=== PATIENT | male | born 1950 | race Caucasian/White ===

== ENCOUNTER 2018-02-05 12:23 | Inpatient (IN) | payer MEDICARE, OTHER ==
[~2018-02-05] VITALS: Ht 182.9 cm; Wt 101.6 kg
[2018-02-05] MEDS ORDERED: TIOT18CA3 IH (12:40)
[2018-02-05] MEDS ORDERED: DILT-32 PO (12:40)
[2018-02-05] MEDS ORDERED: ALBU2.5V38 IH (12:40)
--- NOTE | 2018-02-05 12:58 | NUR ---
Lunch provided, pt ate w/ good appetite. Denies pin.
--- NOTE | 2018-02-05 13:01 | NUR ---
Dr Moran medically cleared pt.
[2018-02-05 13:44] VITALS: BP 117/64
--- NOTE | 2018-02-05 13:45 | NUR ---
RECEIVED PATIENT FROM ER WAS PLACE ON 5150 FOR GD DUE TO N-MISSING PERSON FOR 4 DAYS. PATIENT IS ALERT AND ORIENTED X3,DENIES ANY SUICIDAL IDEATION.ABLE TO AMBULATING WITH UNSTEADY GAIT,ENCOURAGE TO USE FWW,DENIES ANY PAIN OR DISCOMFORT AT THIS TIME,WILL CONTINUE TO CLOSE MONITORING.
[2018-02-05] MEDS ORDERED: ACETAMINOPHEN 325 MG TABLET PO PRN (16:15)
[2018-02-05] MEDS ORDERED: MAG HYDROX/AL HYDROX/SIMETH 30 ML LIQUID UDC PO PRN (16:15)
[2018-02-05] MEDS ORDERED: MAGNESIUM HYDROXIDE 30 ML LIQUID UDC PO PRN (16:15)
[2018-02-05] MEDS: OLANZAPINE ZYDIS 5 MG TAB.RAPDIS PO SCH (16:16)
[2018-02-05 21:45] VITALS: BP 132/67
[2018-02-06 07:30] VITALS: BP 149/79
[2018-02-06] MEDS: OLANZAPINE ZYDIS 5 MG TAB.RAPDIS PO SCH (08:45)
--- NOTE | 2018-02-06 15:45 | NUR ---
Gps/Learning And Development Consultant- Patient requesting to have nicotine patch, claimed he'd been smoking for many years, 1-2 packs of cigarette/day. Old nicotine patch noted to his right deltoid area, Nicotine patch 21 mg. applied to his left deltoid area as ordered.
[2018-02-06] MEDS: NICOTINE 21 MG/24HR PATCH TD SCH (15:46)
[2018-02-06 16:10] VITALS: BP 118/69
[2018-02-06 22:03] VITALS: BP 129/73
[2018-02-06] MEDS ORDERED: ALBUTEROL SULFATE 2.5 MG/3 ML NEBU IH PRN (22:15)
[2018-02-07] MEDS: ZOLPIDEM 5 MG TABLET PO PRN ×2 (01:01→23:29)
[2018-02-07] MEDS: CLONAZEPAM 0.5 MG TABLET PO PRN (02:31)
[2018-02-07 07:30] VITALS: BP 119/73
[2018-02-07] MEDS: NICOTINE 21 MG/24HR PATCH TD SCH (09:00)
[2018-02-07] MEDS: DILTIAZEM HCL CD 120 MG CAP.SR.24H PO SCH (09:01)
[2018-02-07] MEDS: OLANZAPINE ZYDIS 5 MG TAB.RAPDIS PO SCH (09:02)
--- NOTE | 2018-02-07 14:05 | NUR ---
Initial Discharge Plan: Patient lives with his , Tory [[phone]], 13 miles outside of [place] in a home [[address] [place] [address]]. front desk worker was unable to assess where patient would like to go after hospital stay. However, patient's welcomes patient home when ready for discharge. front desk worker spoke with patient about SNF placement if appropriate and she agreed it would be good for further stabilization if needed. Patient is not medication compliant at home and may need assistance with this if discharged home. Discharge plan is uncertain at this time but will either be home with home health or SNF placement if appropriate. Patient's has agreed to provide transportation if needed. front desk worker will continue to collaborate with rocky, MD, and patient's on a safe and proper discharge when ready.
[2018-02-07 15:58] VITALS: BP 116/69
--- NOTE | 2018-02-07 18:05 | NUR ---
Gps/Haris Gutierrez PRINT SHOP HELPER was informed patient sensitive to Nicotine patch, redness to dentoid area noted. Patient denies itching no pain
[2018-02-07 20:24] VITALS: BP 123/76
--- NOTE | 2018-02-08 06:03 | NUR ---
GPS: REMAIN AWAKE. AMBIEN 5 MG PO GIVEN NOT EFFECTIVE. NO SLEEP THROUGH THE NIGHT. NO AGITATION NOTED. CALM AND COOPERATIVE WITH CARE AND MEDICATION CONTINUE MONITORING FOR SAFETY.
[2018-02-08 07:30] VITALS: BP 106/57
[2018-02-08] MEDS: DILTIAZEM HCL CD 120 MG CAP.SR.24H PO SCH (09:00)
[2018-02-08] MEDS: OLANZAPINE ZYDIS 5 MG TAB.RAPDIS PO SCH (09:00)
[2018-02-08] MEDS: NICOTINE 21 MG/24HR PATCH TD SCH (10:26)
[2018-02-08 15:45] VITALS: BP 128/73
[2018-02-08] MEDS: ZOLPIDEM 5 MG TABLET PO PRN (21:24)
[2018-02-08 21:42] VITALS: BP 127/77
--- NOTE | 2018-02-09 06:33 | NUR ---
PT SHOWS NO SIGNS OF DISTRESS. PRESCRIBED MEDICATION GIVEN AND PT TOLERATED IT WELL. GIVEN AMBIEN TO PT FOR SLEEP. PT SLEPT 4 HOURS. SHOWERED TODAY. SAFETY AND COMFORT PROVIDED. ALL NEEDS ARE MET. WILL ENDORSE TO INCOMING NURSE FOR CONTINUITY OF CARE.
[2018-02-09] MEDS: DILTIAZEM HCL CD 120 MG CAP.SR.24H PO SCH (08:19)
[2018-02-09] MEDS: CLONAZEPAM 0.5 MG TABLET PO PRN ×2 (08:19→16:51)
[2018-02-09] MEDS: OLANZAPINE ZYDIS 5 MG TAB.RAPDIS PO SCH ×2 (08:19→20:43)
[2018-02-09] MEDS: NICOTINE 21 MG/24HR PATCH TD SCH (08:19)
[2018-02-09 09:51] VITALS: BP 133/76
[2018-02-09 16:00] VITALS: BP 116/70
--- NOTE | 2018-02-09 17:30 | NUR ---
PATIENT WAS VERY FORGETFUL /DEMENTIA BUT ABLE TO FOLLOW SIMPLE DIRECTION WELL MEDICATION PRN FOR ANXIETY GIVEN ORDERED ,NO ACUTE DISTRESS ,SAFETY MEASURE PROVIDED CALL LIGHT IN REACH
[2018-02-09 20:52] VITALS: BP 116/70
--- NOTE | 2018-02-09 23:09 | NUR ---
RECEIVED RESIDENT IN BED AND UPON APPROACH ENGAGED IN A BRIEF CONVERSATION WITH STAFF. HE PROCEED TO TELL US HE KNEW HIS RIGHTS SO WILL NOT TAKE HIS MEDS.BENEFITS AND RISK EXPLAINED BUT HE STILL REFUSED.HE IS ISOLATIVE WITHDRAWN AND MILDLY SUSPICIOUS.HOWEVER DENIES SI/HI AND IS FORGETFUL. WILL CONTINUE TO MONITOR.
--- NOTE | 2018-02-10 07:03 | NUR ---
SLEPT APPROX.8HRS. REFUSED MEDS BOT MADE NO COMPLIANT.
[2018-02-10 07:30] VITALS: BP 114/61
--- NOTE | 2018-02-10 07:30 | NUR ---
patient received in room awake aaox3. stable condition. no SI noted at this time. no complaints of pain/discomfort. safety precs observed at all times. comfort measures provided. will continue to monitor closely.
[2018-02-10] MEDS: NICOTINE 21 MG/24HR PATCH TD SCH (08:38)
[2018-02-10] MEDS: DILTIAZEM HCL CD 120 MG CAP.SR.24H PO SCH (08:39)
[2018-02-10] MEDS: OLANZAPINE ZYDIS 5 MG TAB.RAPDIS PO SCH ×2 (08:43→20:48)
--- NOTE | 2018-02-10 14:41 | NUR ---
Firearms Report: nursery worker submitted a [employer] firearms report on patient who is on a 5250 gravely disabled certification.
[2018-02-10 16:48] VITALS: BP 125/70
--- NOTE | 2018-02-10 18:50 | NUR ---
PATIENT'S CONDITION REMAINS THE SAME. REFUSED PSYCH MEDS THIS AM. SEEN TALKING TO HIMSELF, HALLUCINATIONS NOTED. DENIES SI. SEEN AND EXAMINED BY DR DELEON. ALL NEEDS ATTENDED AND ANTICIPATED.
[2018-02-10 20:00] VITALS: BP 121/71
[2018-02-11 07:30] VITALS: BP 155/86
[2018-02-11] MEDS: OLANZAPINE ZYDIS 5 MG TAB.RAPDIS PO SCH ×3 (08:40→21:00)
[2018-02-11] MEDS: NICOTINE 21 MG/24HR PATCH TD SCH (08:40)
[2018-02-11] MEDS: DILTIAZEM HCL CD 120 MG CAP.SR.24H PO SCH (08:40)
[2018-02-11 19:08] VITALS: BP 144/85
[2018-02-11 20:40] VITALS: BP 129/78
[2018-02-12 07:30] VITALS: BP 125/76
[2018-02-12 07:30] LABS: BASOPHILS # (AUTO) 0.1 K/uL (0.0-8.0); BASOPHILS % (AUTO) 0.9 % (0.0-2.0); EOSINOPHILS # (AUTO) 0.4 K/uL (0.0-0.7); EOSINOPHILS % (AUTO) 4.7 % (0.0-7.0); HEMOGLOBIN 14.1 g/dL (12.5-16.3); LYMPHOCYTES # (AUTO) 2.1 K/uL (20.0-40.0); LYMPHOCYTES % (AUTO) 27.6 % (20.5-51.5); MEAN CORPUSCULAR HEMOGLOBIN 33.4 uug (23.8-33.4); MEAN CORPUSCULAR HGB CONC 35 g/dL (32.5-36.3); MEAN CORPUSCULAR VOLUME 94.6 fL (73.0-96.2); MONOCYTES # (AUTO) 0.7 K/uL (2.0-10.0); MONOCYTES % (AUTO) 8.9 % (0.0-11.0); NEUTROPHILS # (AUTO) 4.5 K/uL (1.8-8.9); NEUTROPHILS % (AUTO) 57.9 % (38.5-71.5); PLATELET COUNT (AUTO) 269 K/uL (152-348); RED BLOOD CELL COUNT(AUTO) 4.22 MIL/uL (4.06-5.63); WHITE BLOOD COUNT (AUTO) 7.7 K/uL (3.6-10.2)
[2018-02-12 07:43] LABS: BILIRUBIN,TOTAL 0.7 mg/dL (0.2-1.0); CREATININE 0.8 mg/dL (0.6-1.3); PHOSPHOROUS 3.5 mg/dL (2.5-4.9); POTASSIUM 3.9 mmol/L (3.5-5.1); TOTAL PROTEIN, SERUM 6.7 g/dL (6.4-8.2)
[2018-02-12] MEDS: DILTIAZEM HCL CD 120 MG CAP.SR.24H PO SCH (09:00)
[2018-02-12] MEDS: OLANZAPINE ZYDIS 5 MG TAB.RAPDIS PO SCH ×2 (09:00→20:55)
[2018-02-12] MEDS: NICOTINE 14 MG/24HR PATCH TD SCH (10:11)
--- NOTE | 2018-02-12 12:00 | NUR ---
PT HAS RED IRRITATED AREAS ON SKIN FROM WHERE HE REMOVES DAILY NICOTINE PATCH (ON RIGHT SHOULDERBLADE, LEFT SHOULDERBLADE, 2 AREAS ON LEFT DELTOID, 1 AREA ON RIGHT DELTOID, 2 AREAS ON STOMACH). CONSULTED WITH DAVIAN COWAN, PATCH WAS SWITCHED FROM 21MG TO 14MG TO SEE IF IT WAS TOO STRONG AND CAUSING IRRITATION (VS AN ALLERGY). PICTURED IN CHART.
[2018-02-12 15:00] VITALS: BP 110/71
[2018-02-12] MEDS: HYDROCORTISONE 1% CREAM 30 GM TUBE TP PRN ×2 (15:22→20:56)
[2018-02-12 20:23] VITALS: BP 136/70
--- NOTE | 2018-02-13 05:50 | NUR ---
No changes t/o shift. Patient slept appox. 10 hours. Patient remains calm and cooperative. However patient continues to refuse pysch medications. Patient only allowed to have the hydrocortisone cream applied to red, irritated spots his abdomen, back and bilateral arms from the Nicotine patch. Ambulates with steady gait. Good urine output. Safety and and comfort measures maintained t/o shift. All meds given as ordered. All needs met.
[2018-02-13 07:30] VITALS: BP 141/72
[2018-02-13] MEDS: OLANZAPINE ZYDIS 5 MG TAB.RAPDIS PO SCH ×2 (09:00→20:00)
[2018-02-13] MEDS: DILTIAZEM HCL CD 120 MG CAP.SR.24H PO SCH (09:53)
[2018-02-13] MEDS: NICOTINE 14 MG/24HR PATCH TD SCH (09:53)
[2018-02-13 15:48] VITALS: BP 120/71
[2018-02-13 20:33] VITALS: BP 116/63
[2018-02-14] MEDS: HYDROCORTISONE 1% CREAM 30 GM TUBE TP PRN (02:43)
--- NOTE | 2018-02-14 06:39 | NUR ---
GPS: Remain awake most of the night. offered sleeping medication ,patient refused ambien for sleep. refused hs po medications. uncooperative with care at time.slept 1 hrs only through the night. continue monitoring for safety.
[2018-02-14 07:30] VITALS: BP 104/47
[2018-02-14] MEDS: DILTIAZEM HCL CD 120 MG CAP.SR.24H PO SCH (09:00)
[2018-02-14] MEDS: OLANZAPINE ZYDIS 5 MG TAB.RAPDIS PO SCH (09:00)
[2018-02-14] MEDS: NICOTINE 14 MG/24HR PATCH TD SCH (09:04)
--- NOTE | 2018-02-14 09:39 | NUR ---
PT IS ANXIOUS, COOPERATIVE WITH CARE. WITHDRAWN AND ISOLATIVE. CONTINUES TO REFUSE ALL MEDICATIONS OTHER THAN NICOTINE PATCH. STAFF MEMBER REPORTED THAT PT APPROACHED THEM THIS MORNING AND STATED "CALL YOUR RIGHT NOW AND TELL HIM TO PROTECT THE BABY SO NOTHING HAPPENS TO THEM. YOU KNOW, BECAUSE OF WHAT HAPPENED THIS MORNING"
[2018-02-14] MEDS ORDERED: HALOPERIDOL LACTATE 5 MG/1 ML VIAL IM SCH (10:15)
[2018-02-14] MEDS ORDERED: HALOPERIDOL LACTATE 5 MG/1 ML VIAL IM PRN (11:29)
[2018-02-14] MEDS: HALOPERIDOL 5 MG TABLET PO SCH ×2 (12:15→18:21)
[2018-02-14 16:00] VITALS: BP 109/69
--- NOTE | 2018-02-14 16:12 | NUR ---
GROUP ACTIVITY NOTE: GOAL Patient will actively participate in the group activity of the day or relax in the activity room with fellow patients. INTERVENTION Inside Plant Supervisor invited patient to participant in the arts and craft group activity held from 2 -2:45 pm in the activity room. RESPONSE Patient expressed disinterest in participating in arts and crafts, but was interested in relaxing in the activities room with peers. Patient participated in the activity for about 20 minutes by watching tv silently. Patient had no interaction with peers and was very cooperative during the activity. PLAN literacy coordinator will invite patient to attend the next group activity that is held.
[2018-02-14 19:30] VITALS: BP 121/72
--- NOTE | 2018-02-15 06:00 | NUR ---
Received Pt sitting up in bed staring out at the hallway, appearing hypervigilant. Denied any AH/VH, but appears internally preoccupied. A+Ox2, with minimal insight into reason for admission and episodes of delusional behavior. Guarded, isolative, withdrawn, and selective with medications. Poor sleep noted, sleep med offered and refused. VS stable, denied pain.
[2018-02-15 07:30] VITALS: BP 118/79
[2018-02-15] MEDS ORDERED: HALOPERIDOL LACTATE 5 MG/1 ML VIAL IM SCH (10:15)
[2018-02-15] MEDS: DILTIAZEM HCL CD 120 MG CAP.SR.24H PO SCH (10:15)
[2018-02-15] MEDS: HALOPERIDOL 5 MG TABLET PO SCH ×2 (10:16→17:12)
[2018-02-15] MEDS: NICOTINE 14 MG/24HR PATCH TD SCH (10:16)
[2018-02-15 15:39] VITALS: BP 104/64
--- NOTE | 2018-02-15 18:12 | NUR ---
PATIENT HAS HAD LIMITED SELF DISCLOUSURE , MED COMPLIANT AND DEIES ANY SELF HARM ORAL INTAKE FAIR IN ROOM ALL SHIFT EXCEPT SHORT VISITS TO DESK TO GET JUICE, CONTINUE TO MONITOR FOR SAFETY
[2018-02-15 19:30] VITALS: BP 105/56
--- NOTE | 2018-02-15 20:00 | NUR ---
RECEIVED PATIENT IN HIS ROOM SITTING IN HIS BED. HE IS NOTED A/O X 2. HE IS ABLE TO AMBULATE WITH STEADY GAIT AND ABLE TO MAKE HIS NEEDS KNOWN. PATIENT NOTED WITHDRAWN, SHORT ANSWERS, LOW MOOD, HE DENIES SI/VH/AH. SAFETY EMPHASIS. WILL CONTINUE TO MONITOR.
[2018-02-15] MEDS: HYDROCORTISONE 1% CREAM 30 GM TUBE TP PRN (20:37)
[2018-02-16] MEDS: HYDROCORTISONE 1% CREAM 30 GM TUBE TP PRN (06:33)
[2018-02-16 07:30] VITALS: BP 121/72
[2018-02-16] MEDS ORDERED: HALOPERIDOL DECANOATE 50 MG/1 ML AMPUL IM ONE (08:00)
[2018-02-16] MEDS: HALOPERIDOL 5 MG TABLET PO SCH ×2 (08:03→16:12)
[2018-02-16] MEDS: DILTIAZEM HCL CD 120 MG CAP.SR.24H PO SCH (08:03)
[2018-02-16] MEDS: NICOTINE 14 MG/24HR PATCH TD SCH (08:08)
[2018-02-16 16:00] VITALS: BP 120/73
[2018-02-16 20:09] VITALS: BP 120/72
--- NOTE | 2018-02-17 06:10 | NUR ---
GPS: REMAIN CALM AND COOPERATIVE WITH CARE. NO AGITATION OR DELUSIONAL BEHAVIOR NOTED. SLEPT 8 HRS THROUGH THE NIGHT. DENIES PAIN OR DISCOMFORT AT THIS TIME. CONTINUE PLAN OF CARE.
[2018-02-17 07:30] VITALS: BP 122/78
[2018-02-17] MEDS: NICOTINE 14 MG/24HR PATCH TD SCH (09:00)
[2018-02-17] MEDS: HALOPERIDOL 5 MG TABLET PO SCH ×2 (09:21→17:30)
[2018-02-17] MEDS: DILTIAZEM HCL CD 120 MG CAP.SR.24H PO SCH (09:22)
[2018-02-17 15:05] VITALS: BP 105/55
[2018-02-17 20:00] VITALS: BP 125/65
--- NOTE | 2018-02-17 22:43 | NUR ---
RECEIVED RESIDENT IN THE DINNING ROOM.APPEARS WITHDRAWN,GUARDED AND ANSWERS IN MONOSYLLABLES.MOOD WAS ALSO LOW.HE HOWEVER DENIES SI/HI. ABLE TO AMBULATE TO AND FROM HIS ROOM AND CAN MAKE HIS NEEDS KNOWN. NO COMPLIANT OF PAIN OR DISCOMFORT.FREQUENT CHECKS MADE TO HIS ROOM FOR SAFETY. WILL CONTINUE TO MONITOR.
--- NOTE | 2018-02-18 06:59 | NUR ---
SLEPT APPROX. 7HRS.
[2018-02-18 07:30] VITALS: BP 135/75
--- NOTE | 2018-02-18 08:52 | NUR ---
Discharge Note: Patient will be discharged back to home with his , Tory [address] [place] [address]; ] who will provide transportation 12:00pm. daycare worker called and spoke with Tory, patients , informing her of patient discharge and she is agreeable with the plan. Patient is alert and oriented x3 and denies any SI/HI. Patient is agreeable with discharge plan. Patient is affiliated with the [facility] and will follow-up as an outpatient. Patient did not provide name of PCP and patients did not know. No appointment has been scheduled as of now, but social work professor encouraged patient and , Tory, to schedule a follow-up appointment. Patient currently does not have a psychiatrist, so social work professor has provided patient with a list of Medicare accepting psychiatrists in local area. Patient was given outpatient mental health resources including [facility] [[phone]], [facility] [[phone]], and National Suicide Prevention Lifeline [ ]. Patient was also provided with a brief substance abuse intervention and given resources including [facility] [[phone]], [facility] [[phone]], and [facility] National Helpline [ ].
[2018-02-18] MEDS ORDERED: HALOPERIDOL 2 MG TABLET PO SCH (09:00)
[2018-02-18] MEDS: NICOTINE 14 MG/24HR PATCH TD SCH (09:00)
[2018-02-18 09:46] VITALS: BP 135/81
[2018-02-18] MEDS: DILTIAZEM HCL CD 120 MG CAP.SR.24H PO SCH (09:46)
--- NOTE | 2018-02-18 12:00 | NUR ---
1145 Discharged instruction given to both patient and regarding medication to continue at home and prescription given with intruction to file it to patient pharmacy- bothj verbalized understanding. Patient alert and ox3, denies SI/HI. No delusion. No hallucination noted. 1`200 Patient discharged home with via private car fair condition.
== END 2018-02-18 12:00 | disposition home or self-care (01) | DRG 885 ==
LOC: ER 12:27 → GPS 13:19
PROVIDERS: ADMIT Psychiatry & Neurology Psychiatry; ATTEND Nurse Practitioner Acute Care
DX: F20.0 Paranoid schizophrenia (principal); Z88.2 Allergy status to sulfonamides; J44.9 Chronic obstructive pulmonary disease, unspecified; E66.9 Obesity, unspecified; F17.210 Nicotine dependence, cigarettes, uncomplicated; F32.9 Major depressive disorder, single episode, unspecified; G47.00 Insomnia, unspecified; I10 Essential (primary) hypertension; L30.9 Dermatitis, unspecified; Z88.0 Allergy status to penicillin; J45.909 Unspecified asthma, uncomplicated; Z68.30 Body mass index [BMI] 30.0-30.9, adult; Z91.19 Patient's noncompliance with other medical treatment and regimen; Z87.19 Personal history of other diseases of the digestive system; I48.91 Unspecified atrial fibrillation
CPT/HCPCS: 36415; 71045; 83735; 84100; 85025; A4663; J1631